=== PATIENT | male | born 1960 | race American Indian/Alaskan Native ===

== ENCOUNTER 2017-07-14 13:40 | Emergency (ER) | payer MEDICARE ==
--- NOTE | 2017-07-14 14:12 | Cat Scan Report ---
FINAL REPORT EXAM: CT HEAD/BRAIN WO CON HISTORY: neuro deficits < 6hrs or sx present upon awakening TECHNIQUE: CT of the Head without IV contrast. PRIORS: None currently available. FINDINGS: Large area of encephalomalacia in the left MCA territory probably relates to chronic ischemia. Decreased attenuation regions in the periventricular and subcortical white matter are nonspecific and may represent small vessel ischemic disease, encephalopathy, edema, or a demyelinating process. Small vessel ischemic disease is more likely. Vascular calcifications. There is no evidence for acute ischemia. There is no hemorrhage. There is no midline shift. There is no hydrocephalus. There is no mass. Age appropriate naylor-white matter attenuation is noted. There is no calvarial fracture. Opacification of the right mastoid air cells may represent physiological fluid or mastoiditis. No coalescence or increased sclerosis noted. Both middle ears are unremarkable. Left mastoid air cells are unremarkable. Chronic right maxillary sinus disease with mild mucosal thickening. Similar finding noted within left maxillary sinus. Mild mucosal thickening in both ethmoid sinuses. Mild mucosal thickening in the sphenoid sinuses noted. Hypoplastic bilateral frontal sinuses identified. Soft tissue density and calcification the right globe may represent phthisis bulbi or a lesion. Left globe is unremarkable. IMPRESSION: No acute intracranial findings. Chronic ischemic disease. Lesion or chronic changes in the right globe. Please correlate clinically.
[2017-07-14 14:16] LABS: Basophils % (Auto) 0.9 % (0.0-1.8); Eosinophils # (Auto) 0.1 K/mm3 (0.0-0.4); Eosinophils % (Auto) 2.4 % (0.0-4.3); Hematocrit 27.4 % (35.5-45.6); Hemoglobin 8.5 gm/dl (11.8-15.2); Lymphocytes # (Auto) 0.7 K/mm3 (1.2-5.4); Lymphocytes % (Auto) 13.6 % (13.4-35.0); Mean Corpuscular HGB Conc 31 % (32-34); Mean Corpuscular Volume 82 fl (84-94); Monocytes # (Auto) 0.5 K/mm3 (0.0-0.8); Monocytes % (Auto) 9.1 % (0.0-7.3); Platelet Count 245 K/mm3 (140-440); Red Blood Count 3.35 M/mm3 (3.65-5.03); Red Cell Distribution Width 15.4 % (13.2-15.2)
[2017-07-14 14:17] LABS: Mean Corpuscular Hemoglobin 25 pg (28-32)
[2017-07-14 14:32] LABS: INR 0.94 (0.87-1.13)
[2017-07-14 14:34] LABS: Calcium 8.7 mg/dL (8.4-10.2)
[2017-07-14 14:53] LABS: Chol/HDL Ratio 1.55 %
[2017-07-14 16:24] LABS: Bilirubin,Urine NEG (Negative); Blood,Urine NEG (Negative); Color,Urine Yellow (Yellow); Mucus,Urine FEW /HPF; Urobilinogen,Urine < 2.0 mg/dL (<2.0)
--- NOTE | 2017-07-14 16:38 | Emergency Department Report ---
ED Neuro Deficit HPI - General Chief Complaint: Neuro Symptoms/Deficit Stated Complaint: BILATERAL HAND NUMBNESS Time Seen by Provider: 07/14/17 14:09 Source: patient, family Mode of arrival: Ambulatory Limitations: No Limitations - History of Present Illness -: Gradual (Happened today but also happened before, numbness in both arms and scalp of the head. he denies SHOB or chest pain. Also a little slurred speech and weakness. The said he could not hold the spoon earlier today. ) - Related Data Home Medications: Previous Rx's Medication Instructions Recorded Last Taken Type RX: Aspirin EC [Aspirin Enteric 81 mg PO QDAY #30 tablet 02/19/17 Unknown Rx Coated TAB] RX: AtorvaSTATin [Lipitor] 40 mg PO QHS #30 tablet 02/19/17 Unknown Rx RX: Clopidogrel [Plavix] 75 mg PO QDAY #30 tablet 02/19/17 Unknown Rx RX: Doxazosin [Cardura] 2 mg PO QDAY #60 tablet 02/19/17 Unknown Rx RX: ISOSORBIDE MONOnitrate [Imdur 60 mg PO QDAY #30 tablet 02/19/17 Unknown Rx ER] RX: Insulin Glargine,Hum.rec.anlog 20 units SQ QHS 30 Days insuln.pen 02/19/17 Unknown Rx [Lantus Solostar] RX: Metoprolol Xl [Metoprolol 50 mg PO QDAY #30 tablet 02/19/17 Unknown Rx SUCCINATE ER TAB] RX: Mycophenolate [Cellcept] 500 mg PO BID #60 tablet 02/19/17 Unknown Rx RX: NIFEdipine XL [Procardia Xl] 90 mg PO Q12HR #60 tablet 02/19/17 Unknown Rx RX: Nitroglycerin [Nitrostat] 0.4 mg SL .Q5MIN PRN #30 tablet 02/19/17 Unknown Rx RX: Tacrolimus [Prograf] 3 mg PO Q12H #180 capsule 02/19/17 Unknown Rx RX: hydrALAZINE [Apresoline TAB] 100 mg PO Q8HR #90 tab 02/19/17 Unknown Rx Allergies/Adverse Reactions: Allergies Allergy/AdvReac Type Severity Reaction Status Date / Time No Known Allergies Allergy Unverified 02/16/17 10:02 ED Review of Systems ROS: Stated complaint: BILATERAL HAND NUMBNESS Other details as noted in HPI Constitutional: denies: chills, fever Eyes: denies: eye pain, eye discharge, vision change ENT: denies: ear pain, throat pain Respiratory: denies: cough, shortness of breath, wheezing Cardiovascular: denies: chest pain, palpitations Endocrine: no symptoms reported Gastrointestinal: denies: abdominal pain, nausea, diarrhea Genitourinary: denies: urgency, dysuria Musculoskeletal: denies: back pain, joint swelling, arthralgia Skin: denies: rash, lesions Neurological: denies: headache, weakness, paresthesias Psychiatric: denies: anxiety, depression Hematological/Lymphatic: denies: easy bleeding, easy bruising ED Past Medical Hx - Past Medical History Hx Hypertension: Yes Hx CVA: Yes Hx Heart Attack/AMI: Yes Hx Congestive Heart Failure: Yes Hx Diabetes: Yes Hx Renal Disease: Yes Hx Asthma: No Additional medical history: CVA 2016 - Surgical History Past Surgical History?: Yes Hx Coronary Stent: Yes (1999) Additional Surgical History: Bilateral Kidney transplant ([place]), renal transplant in 2000, 2011 - Social History Smoking Status: Former Smoker Substance Use Type: None - Medications Home Medications: Home Medications Medication Instructions Recorded Confirmed Last Taken Type RX: Aspirin EC [Aspirin Enteric 81 mg PO QDAY #30 tablet 02/19/17 Unknown Rx Coated TAB] RX: AtorvaSTATin [Lipitor] 40 mg PO QHS #30 tablet 02/19/17 Unknown Rx RX: Clopidogrel [Plavix] 75 mg PO QDAY #30 tablet 02/19/17 Unknown Rx RX: Doxazosin [Cardura] 2 mg PO QDAY #60 tablet 02/19/17 Unknown Rx RX: ISOSORBIDE MONOnitrate [Imdur 60 mg PO QDAY #30 tablet 02/19/17 Unknown Rx ER] RX: Insulin Glargine,Hum.rec.anlog 20 units SQ QHS 30 Days insuln.pen 02/19/17 Unknown Rx [Lantus Solostar] RX: Metoprolol Xl [Metoprolol 50 mg PO QDAY #30 tablet 02/19/17 Unknown Rx SUCCINATE ER TAB] RX: Mycophenolate [Cellcept] 500 mg PO BID #60 tablet 02/19/17 Unknown Rx RX: NIFEdipine XL [Procardia Xl] 90 mg PO Q12HR #60 tablet 02/19/17 Unknown Rx RX: Nitroglycerin [Nitrostat] 0.4 mg SL .Q5MIN PRN #30 tablet 02/19/17 Unknown Rx RX: Tacrolimus [Prograf] 3 mg PO Q12H #180 capsule 02/19/17 Unknown Rx RX: hydrALAZINE [Apresoline TAB] 100 mg PO Q8HR #90 tab 02/19/17 Unknown Rx ED Neuro Physical Exam - General Limitations: No Limitations General appearance: alert, in no apparent distress Suspected Stroke: No - Head Head exam: Present: atraumatic, normocephalic - Eye Eye exam: Present: normal appearance - ENT ENT exam: Present: mucous membranes moist - Neck Neck exam: Present: normal inspection - Respiratory Respiratory exam: Present: normal lung sounds bilaterally. Absent: respiratory distress - Cardiovascular Cardiovascular Exam: Present: regular rate, normal rhythm. Absent: systolic murmur, diastolic murmur, rubs, gallop - GI/Abdominal GI/Abdominal exam: Present: soft, normal bowel sounds - Rectal Rectal exam: Present: deferred - Extremities Exam Extremities exam: Present: normal inspection - Back Exam Back exam: Present: normal inspection, full ROM (B/L LL amputation) - Neurological Exam Neurological exam: Present: alert, oriented X3 - NIHSS Assessment Interval: Baseline 1a. Level of Consciousness: alert 1b. LOC Questions: answers correctly 1c. LOC Commands: performs tasks correctly 2. Best Gaze: normal 3. Visual: no visual loss 4. Facial Palsy: normal symmetrical movement 5b. Motor Arm Right: no drift 5a. Motor Arm Left: no drift 6a. Motor Leg Left: no drift 6b. Motor Leg Right: no drift 7. Limb Ataxia: amputation 8. Sensory: normal 9. Best Language: no aphasia 10. Dysarthria: mild/moderate dysarthria 11. Extinction/Inattention: no abnormality - Psychiatric Psychiatric exam: Present: normal affect, normal mood - Skin Skin exam: Present: warm, dry, intact, normal color. Absent: rash ED Course Vital Signs 07/14/17 07/14/17 07/14/17 13:48 13:54 14:06 Temperature 97.3 F L Pulse Rate 94 H 97 H Respiratory 16 17 Rate Blood Pressure 154/75 Blood Pressure [Right] O2 Sat by Pulse 99 99 100 Oximetry 07/14/17 07/14/17 07/14/17 14:16 14:30 14:46 Temperature Pulse Rate 94 H Respiratory 17 Rate Blood Pressure 144/84 176/83 176/83 Blood Pressure 144/84 [Right] O2 Sat by Pulse 100 99 100 Oximetry 07/14/17 15:00 Temperature Pulse Rate Respiratory Rate Blood Pressure 177/85 Blood Pressure [Right] O2 Sat by Pulse 99 Oximetry - Reevaluation(s) Reevaluation #1: 07/14/17 17:06 At the ER he says symptoms are resolved. Offered to him to stay here but he wanted to go home. Asked him to follow up with his director of student aid and [facility] specialist. - Lab Data Result diagrams: 07/14/17 14:02 07/14/17 14:02 Lab Results 07/14/17 07/14/17 07/14/17 Range/Units 13:57 14:02 14:02 WBC 5.1 (4.5-11.0) K/mm3 RBC 3.35 L (3.65-5.03) M/mm3 Hgb 8.5 L (11.8-15.2) gm/dl Hct 27.4 L (35.5-45.6) % MCV 82 L (84-94) fl MCH 25 L (28-32) pg MCHC 31 L (32-34) % RDW 15.4 H (13.2-15.2) % Plt Count 245 (140-440) K/mm3 Lymph % (Auto) 13.6 (13.4-35.0) % Smith % (Auto) 9.1 H (0.0-7.3) % Eos % (Auto) 2.4 (0.0-4.3) % Baso % (Auto) 0.9 (0.0-1.8) % Lymph # 0.7 L (1.2-5.4) K/mm3 Smith # 0.5 (0.0-0.8) K/mm3 Eos # 0.1 (0.0-0.4) K/mm3 Baso # 0.0 (0.0-0.1) K/mm3 Seg Neutrophils % 74.0 H (40.0-70.0) % Seg Neutrophils # 3.8 (1.8-7.7) K/mm3 PT 13.0 (12.2-14.9) Sec. INR 0.94 (0.87-1.13) APTT 26.0 (24.2-36.6) Sec. Thrombin Time (15.1-19.6) Sec. Sodium (137-145) mmol/L Potassium (3.6-5.0) mmol/L Chloride (98-107) mmol/L Carbon Dioxide (22-30) mmol/L Anion Gap mmol/L BUN (9-20) mg/dL Creatinine (0.8-1.5) mg/dL Estimated GFR ml/min BUN/Creatinine Ratio % Glucose (75-100) mg/dL POC Glucose 201 H (70-105) Calcium (8.4-10.2) mg/dL Troponin T (0.00-0.029) ng/mL Triglycerides (2-149) mg/dL Cholesterol (50-199) mg/dL LDL Cholesterol Direct (50-130) mg/dL HDL Cholesterol (40-59) mg/dL Cholesterol/HDL Ratio % Urine Color (Yellow) Urine Turbidity (Clear) Urine pH (5.0-7.0) Ur Specific [place] (1.003-1.030) Urine Protein (Negative) mg/dL Urine Glucose (UA) (Negative) mg/dL Urine Ketones (Negative) mg/dL Urine Blood (Negative) Urine Nitrite (Negative) Urine Bilirubin (Negative) Urine Urobilinogen (<2.0) mg/dL Ur Leukocyte Esterase (Negative) Urine WBC (Auto) (0.0-6.0) /HPF Urine RBC (Auto) (0.0-6.0) /HPF U Epithel Cells (Auto) (0-13.0) /HPF Urine Mucus /HPF 07/14/17 07/14/17 07/14/17 Range/Units 14:02 14:02 16:00 WBC (4.5-11.0) K/mm3 RBC (3.65-5.03) M/mm3 Hgb (11.8-15.2) gm/dl Hct (35.5-45.6) % MCV (84-94) fl MCH (28-32) pg MCHC (32-34) % RDW (13.2-15.2) % Plt Count (140-440) K/mm3 Lymph % (Auto) (13.4-35.0) % Smith % (Auto) (0.0-7.3) % Eos % (Auto) (0.0-4.3) % Baso % (Auto) (0.0-1.8) % Lymph # (1.2-5.4) K/mm3 Smith # (0.0-0.8) K/mm3 Eos # (0.0-0.4) K/mm3 Baso # (0.0-0.1) K/mm3 Seg Neutrophils % (40.0-70.0) % Seg Neutrophils # (1.8-7.7) K/mm3 PT (12.2-14.9) Sec. INR (0.87-1.13) APTT (24.2-36.6) Sec. Thrombin Time 15.5 (15.1-19.6) Sec. Sodium 133 L (137-145) mmol/L Potassium 3.8 (3.6-5.0) mmol/L Chloride 101.9 (98-107) mmol/L Carbon Dioxide 16 L (22-30) mmol/L Anion Gap 19 mmol/L BUN 30 H (9-20) mg/dL Creatinine 2.1 H (0.8-1.5) mg/dL Estimated GFR 40 ml/min BUN/Creatinine Ratio 14 % Glucose 191 H (75-100) mg/dL POC Glucose (70-105) Calcium 8.7 (8.4-10.2) mg/dL Troponin T 0.045 H (0.00-0.029) ng/mL Triglycerides 66 (2-149) mg/dL Cholesterol 118 (50-199) mg/dL LDL Cholesterol Direct 29 L (50-130) mg/dL HDL Cholesterol 76 H (40-59) mg/dL Cholesterol/HDL Ratio 1.55 % Urine Color Yellow (Yellow) Urine Turbidity Clear (Clear) Urine pH 5.0 (5.0-7.0) Ur Specific [place] 1.012 (1.003-1.030) Urine Protein 100 mg/dl (Negative) mg/dL Urine Glucose (UA) Neg (Negative) mg/dL Urine Ketones Neg (Negative) mg/dL Urine Blood Neg (Negative) Urine Nitrite Neg (Negative) Urine Bilirubin Neg (Negative) Urine Urobilinogen < 2.0 (<2.0) mg/dL Ur Leukocyte Esterase Neg (Negative) Urine WBC (Auto) 1.0 (0.0-6.0) /HPF Urine RBC (Auto) 2.0 (0.0-6.0) /HPF U Epithel Cells (Auto) < 1.0 (0-13.0) /HPF Urine Mucus Few /HPF Critical care attestation.: If time is entered above; I have spent that time in minutes in the direct care of this critically ill patient, excluding procedure time. ED Disposition Clinical Impression: Numbness, Elevated troponin Anemia Qualifiers: Anemia type: unspecified type Qualified Code(s): D64.9 - Anemia, unspecified Chronic kidney disease Qualifiers: Chronic kidney disease stage: unspecified stage Qualified Code(s): N18.9 - Chronic kidney disease, unspecified Disposition: DC-01 TO HOME OR SELFCARE Is pt being admited?: No Does the pt Need Aspirin: No Condition: Stable Referrals: ANA NICE MD [Staff Physician] - 3-5 Days Time of Disposition: 17:05
[2017-07-14 17:45] VITALS: BP 168/82
== END 2017-07-14 17:40 | disposition home or self-care (01) ==
LOC: ED 13:40
DX: R20.0 Anesthesia of skin (principal); D64.9 Anemia, unspecified; E11.22 Type 2 diabetes mellitus with diabetic chronic kidney disease; I12.9 Hypertensive chronic kidney disease with stage 1 through stage 4 chronic kidney disease, or unspecified chronic kidney disease; N18.9 Chronic kidney disease, unspecified
CPT/HCPCS: 36415; 70450; 80048; 80061; 81001; 82962; 84484; 85025; 85610; 85670; 85730; 93005; 93010